=== PATIENT | female | born 1950 | race Caucasian/White ===

== ENCOUNTER → 2018-10-12 | Outpatient (CLI) | payer MEDICARE ==
--- NOTE | 2018-10-12 15:05 | RADIOLOGY IMAGING REPORT ---
[place]AC[place] [facility] [place]IENT NAME: Valentina Machado : 1950 MR: [id number] V: [id number] EXAM DATE: ORDERING PHYSICIAN: RAMBO PATTON TECHNOLOGIST: Location: [facility] [place] Patient: Valentina Machado : 1950 Visit/Account:[id number] Date of Sevice: 10/12/2018 DEXA Scan Clinical history: Osteopenia. Comparison: None available. LUMBAR SPINE: The bone mineral density (BMD) measured from L1-L4 correlates with a Z-score 2.2 and a T-score of 1.5 which is Normal as defined by the World Health Organization. The corresponding risk of fracture in the lumbar spine is Not increased compared with a young adult reference population. HIP: Bone mineral density (BMD) measured in the Left total hip region correlates with a Z-score and a T-sc ore of -0.3 which is Normal as defined by the World Health Organization. The corresponding risk of f racture in the hip is Not increased compared with a young adult reference population. T score left femoral neck -0.6 Bone mineral density (BMD) measured in the Femoral Neck region measures 0.954 g/cm2. Impression: 1. Lumbar spine: Normal. 2. Left Hip: Normal. 3. Femoral Neck: Bone Mineral Density is 0.954 g/cm2 The next DEXA scan of this patient should include the following sites: L1-L4 and the left hip. FRAX? WHO Fracture Risk Assessment Tool link: <http://www.shef.ac.uk/FRAX/tool.jsp?locationValue=9> PLEASE NOTE: 1) The World Health Organization defines low BMD as follows: T-score Normal > -1 Osteopenia < -1 and > -2.5 Osteoporosis < -2.5 without fractures Established osteoporosis < -2.5 with fractures 2) In general, you may wish to consider: Diagnosis Treatment Follow-up DEXA Normal BMD Prevention 2-3 years Osteopenia Prevention/therapy 1-2 years Osteoporosis Therapy Yearly 3) Fracture risk estimated from the T-score is more accurate for vertebral fractures (often spontane ous) than for hip fractures. Report Dictated By: Gloria Patricia MD at 10/12/2018 2:59 PM Report E-Signed By: Gloria Patricia MD at 10/12/2018 3:00 PM WSN:[email or web address]
== END ==
LOC: RAD 11:25
PROVIDERS: ATTEND Nurse Practitioner Family
DX: N95.9 Unspecified menopausal and perimenopausal disorder (principal); Z90.710 Acquired absence of both cervix and uterus; G62.9 Polyneuropathy, unspecified; L57.0 Actinic keratosis; I10 Essential (primary) hypertension; K21.9 Gastro-esophageal reflux disease without esophagitis; H26.9 Unspecified cataract; H40.9 Unspecified glaucoma; H57.13 Ocular pain, bilateral; M10.9 Gout, unspecified; G93.2 Benign intracranial hypertension
CPT/HCPCS: 77080